=== PATIENT | female | born 1975 | race Caucasian/White ===

== ENCOUNTER 2017-09-29 13:30 | Emergency (ER) | payer MEDICARE, MEDICAID ==
[~2017-09-29] VITALS: Ht 162.6 cm; Wt 45.0 kg
[2017-09-29] MEDS ORDERED: SODIUM CHLORIDE 0.9% 1,000 ML IV ONE (14:20)
[2017-09-29] MEDS ORDERED: LEVETIRACETAM 500MG PREMIX 100 ML IV ONE (14:30)
[2017-09-29 14:49] LABS: CHLORIDE 105 mEq/L (98-107)
[2017-09-29 14:55] LABS: ETHANOL BLOOD < 10 mg/dL
[2017-09-29 14:57] LABS: CARBAMAZEPINE 4.1 ug/mL (4-12); EOSINOPHILS % 1.4 % (0.0-5.0); HEMOGLOBIN. 13.6 g/dL (12.0-16.0); LYMPHOCYTES % 18.7 % (20.0-50.0); MEAN CORPUSCULAR HEMOGLOBIN 32.2 pg (28.0-32.0); MEAN CORPUSCULAR VOLUME 87.5 fL (81.0-99.0); MONOCYTES % 8.8 % (2.0-8.0); NEUTROPHILS % 70.1 % (40.0-76.0); PLATELET 518 x1000/uL (130-400); RED BLOOD CELL COUNT 4.23 mill/uL (4.2-5.4); RED CELL DISTRIBUTION WIDTH 13.8 % (11.6-14.6)
[2017-09-29 14:58] LABS: PHENOBARBITAL < 2.1 ug/mL (15.0-40.0)
[2017-09-29 14:59] LABS: CLARITY URINE CLOUDY (CLEAR); COLOR URINE YELLOW (YELLOW); KETONES URINE NEGATIVE (NEGATIVE); LEUKOCYTE ESTERASE URINE 2+ (NEGATIVE); NITRITE URINE POSITIVE (NEGATIVE); OCCULT BLOOD URINE TRACE (NEGATIVE); PH URINE 6.5 (4.5-8.0); PROTEIN URINE 2+ (NEGATIVE); SPECIFIC GRAVITY URINE 1.019 (1.005-1.030)
[2017-09-29 15:02] LABS: VALPROIC ACID < 3.0 ug/mL (50-100)
[2017-09-29 15:41] LABS: *BENZODIAZEPINES SCREEN URINE NEGATIVE (NEGATIVE); *COCAINE SCREEN URINE NEGATIVE (NEGATIVE); METHADONE URINE SCREEN NEGATIVE (NEGATIVE); OPIATES URINE SCREEN NEGATIVE (NEGATIVE)
[2017-09-29 15:42] LABS: *AMPHETAMINES SCREEN URINE NEGATIVE (NEGATIVE); *BARBITURATES SCREEN URINE NEGATIVE (NEGATIVE); CANNABINOID URINE SCREEN NEGATIVE (NEGATIVE); PHENCYCLIDINE URINE SCREEN NEGATIVE (NEGATIVE)
[2017-09-29 16:29] VITALS: BP 148/67
== END 2017-09-29 16:32 | disposition home or self-care (01) ==
LOC: ER 13:48
DX: R56.9 Unspecified convulsions (principal); N39.0 Urinary tract infection, site not specified; E86.0 Dehydration; I10 Essential (primary) hypertension; Z86.73 Personal history of transient ischemic attack (TIA), and cerebral infarction without residual deficits; Z91.013 Allergy to seafood
CPT/HCPCS: 36415; 80053; 80156; 80165; 80184; 80185; 80305; 81003; 84443; 85025; 87086; 96365; 99285; G0482; J1953; J7030

== ENCOUNTER 2018-03-06 16:10 | Emergency (ER) | payer MEDICARE, MEDICAID ==
[~2018-03-06] VITALS: Ht 152.4 cm; Wt 60.0 kg
[2018-03-06] MEDS ORDERED: CARB200T6 PO (16:26)
[2018-03-06] MEDS ORDERED: FERR325T6 PO (16:26)
[2018-03-06] MEDS ORDERED: FAMO20TA8 PO (16:26)
[2018-03-06] MEDS ORDERED: CARV6.2548 PO (16:26)
[2018-03-06] MEDS ORDERED: RIVA20TA PO (16:26)
[2018-03-06] MEDS ORDERED: SODIUM CHLORIDE 0.9% 1,000 ML IV ONE (17:47)
[2018-03-06 18:17] LABS: BASOPHILS % 1.2 % (0.0-2.0); EOSINOPHILS % 0.5 % (0.0-5.0); HEMATOCRIT. 28.8 % (36.0-48.0); HEMOGLOBIN. 10.3 g/dL (12.0-16.0); LYMPHOCYTES % 23.3 % (20.0-50.0); MEAN CORPUSCULAR VOLUME 91.7 fL (81.0-99.0); MEAN PLATELET VOLUME 8.4 fl (7.4-10.4); PLATELET 451 x1000/uL (130-400); RED BLOOD CELL COUNT 3.14 mill/uL (4.2-5.4); RED CELL DISTRIBUTION WIDTH 15.1 % (11.6-14.6)
[2018-03-06 18:23] LABS: CHLORIDE 106 mEq/L (98-107)
[2018-03-06 18:25] LABS: HCG SCREEN NEGATIVE
[2018-03-06 18:37] LABS: CLARITY URINE CLOUDY (CLEAR); COLOR URINE DARK YELLOW (YELLOW); KETONES URINE TRACE (NEGATIVE); LEUKOCYTE ESTERASE URINE 1+ (NEGATIVE); NITRITE URINE NEGATIVE (NEGATIVE); OCCULT BLOOD URINE 3+ (NEGATIVE); PH URINE 5.5 (4.5-8.0); PROTEIN URINE 1+ (NEGATIVE); SPECIFIC GRAVITY URINE 1.019 (1.005-1.030)
[2018-03-06 21:30] VITALS: BP 136/75
== END 2018-03-06 21:30 | disposition home or self-care (01) ==
LOC: ER 16:10
DX: N93.8 Other specified abnormal uterine and vaginal bleeding (principal); N39.0 Urinary tract infection, site not specified; D64.9 Anemia, unspecified; I69.351 Hemiplegia and hemiparesis following cerebral infarction affecting right dominant side; G40.909 Epilepsy, unspecified, not intractable, without status epilepticus; I10 Essential (primary) hypertension; E87.6 Hypokalemia; Z91.013 Allergy to seafood; Z98.890 Other specified postprocedural states; Z99.3 Dependence on wheelchair
CPT/HCPCS: 36415; 76830; 76856; 80053; 81003; 81025; 84703; 85025; 93005; 96360; 99284; J7030

== ENCOUNTER 2018-09-01 10:44 | Inpatient (IN) | payer MEDICARE, MEDICAID ==
[~2018-09-01] VITALS: Ht 152.4 cm; Wt 44.9 kg
[~2018-09-01 10:44] MED LIST: CARB200T6 PO; CARV6.2548 PO; FAMO20TA8 PO; FERR325T6 PO; RIVA20TA PO
[2018-09-01] MEDS ORDERED: SODIUM CHLORIDE 0.9% 1,000 ML IV ONE (11:16)
[2018-09-01] MEDS ORDERED: ONDANSETRON HCL 4MG/2ML INJ IV STA (11:16)
[2018-09-01 11:30] LABS: EOSINOPHILS % 1.3 % (0.0-5.0); HEMATOCRIT. 41.1 % (36.0-48.0); HEMOGLOBIN. 14.4 g/dL (12.0-16.0); LYMPHOCYTES % 37.2 % (20.0-50.0); MEAN CORPUSCULAR HEMOGLOBIN 31.2 pg (28.0-32.0); MEAN CORPUSCULAR VOLUME 89.3 fL (81.0-99.0); MEAN PLATELET VOLUME 7.9 fl (7.4-10.4); MONOCYTES % 8.3 % (2.0-8.0); NEUTROPHILS % 52.2 % (40.0-76.0); PLATELET 563 x1000/uL (130-400); RED BLOOD CELL COUNT 4.61 mill/uL (4.2-5.4)
[2018-09-01] MEDS ORDERED: LEVETIRACETAM 500MG PREMIX 100 ML IV ONE (11:30)
[2018-09-01 11:36] LABS: PROTHROMBIN TIME 10.4 sec (9.6-11.0)
[2018-09-01 11:37] LABS: CHLORIDE 108 mEq/L (98-107)
[2018-09-01 11:42] LABS: ETHANOL BLOOD < 10 mg/dL
[2018-09-01 11:46] LABS: CREATINE KINASE 34 IU/L (26-192)
[2018-09-01 11:49] LABS: PHENOBARBITAL < 2.1 ug/mL (15.0-40.0)
[2018-09-01 11:51] LABS: CARBAMAZEPINE 8.3 ug/mL (4-12)
[2018-09-01] MEDS ORDERED: LORAZEPAM 2MG/ML CPJ IV ONE (12:15)
[2018-09-01] MEDS ORDERED: CEFTRIAXONE 1 G PREMIX 50 ML IV ONE (12:15)
[2018-09-01] MEDS ORDERED: ONDANSETRON HCL 4MG/2ML INJ IV ONE (12:45)
[2018-09-01 13:05] LABS: *AMPHETAMINES SCREEN URINE NEGATIVE (NEGATIVE); *BARBITURATES SCREEN URINE NEGATIVE (NEGATIVE); *BENZODIAZEPINES SCREEN URINE NEGATIVE (NEGATIVE); *COCAINE SCREEN URINE NEGATIVE (NEGATIVE); METHADONE URINE SCREEN NEGATIVE (NEGATIVE)
[2018-09-01 13:06] LABS: CANNABINOID URINE SCREEN NEGATIVE (NEGATIVE); OPIATES URINE SCREEN NEGATIVE (NEGATIVE); PHENCYCLIDINE URINE SCREEN NEGATIVE (NEGATIVE)
[2018-09-01 13:35] LABS: CLARITY URINE CLOUDY (CLEAR); COLOR URINE YELLOW (YELLOW); KETONES URINE NEGATIVE (NEGATIVE); LEUKOCYTE ESTERASE URINE NEGATIVE (NEGATIVE); NITRITE URINE NEGATIVE (NEGATIVE); OCCULT BLOOD URINE 1+ (NEGATIVE); PROTEIN URINE 3+ (NEGATIVE); SPECIFIC GRAVITY URINE 1.016 (1.005-1.030); UROBILINOGEN URINE 0.2 E.U./dL (0.2-1.0)
[2018-09-01 16:00] VITALS: BP 172/86
[2018-09-01] MEDS ORDERED: CLONIDINE 0.3MG TABLET PO PRN (16:00)
[2018-09-01] MEDS ORDERED: HYDROCODONE/ACETAMINOPHEN 5/325MG TABLET PO PRN (16:00)
[2018-09-01] MEDS ORDERED: ACETAMINOPHEN 325MG TABLET PO PRN (16:00)
[2018-09-01] MEDS ORDERED: LORAZEPAM 2MG/ML CPJ IV PRN (16:00)
[2018-09-01] MEDS: POTASSIUM CHLORIDE 20MEQ TABLET SR PO NR ×2 (16:16→16:19)
[2018-09-01] MEDS: AMLODIPINE 10MG TABLET PO SCH (16:21)
[2018-09-01 16:39] VITALS: BP 176/86
[2018-09-01] MEDS: CARVEDILOL 6.25 MG TABLET PO SCH (18:07)
[2018-09-01] MEDS ORDERED: CARB200C4 MT (19:25)
[2018-09-01 20:00] VITALS: BP 167/97
[2018-09-02] VITALS: BP 122/60
[2018-09-02 04:00] VITALS: BP 106/65
[2018-09-02 06:09] LABS: BASOPHILS % 0.7 % (0.0-2.0); EOSINOPHILS % 0.6 % (0.0-5.0); HEMATOCRIT. 32.7 % (36.0-48.0); HEMOGLOBIN. 11.2 g/dL (12.0-16.0); LYMPHOCYTES % 19.6 % (20.0-50.0); MEAN CORPUSCULAR HEMOGLOBIN 31.1 pg (28.0-32.0); MEAN CORPUSCULAR VOLUME 90.6 fL (81.0-99.0); MONOCYTES % 8.8 % (2.0-8.0); NEUTROPHILS % 70.3 % (40.0-76.0); PLATELET 494 x1000/uL (130-400); RED BLOOD CELL COUNT 3.61 mill/uL (4.2-5.4); RED CELL DISTRIBUTION WIDTH 14.6 % (11.6-14.6)
[2018-09-02 07:32] LABS: CHLORIDE 110 mEq/L (98-107)
[2018-09-02 08:00] VITALS: BP 123/63
[2018-09-02] MEDS ORDERED: ONDANSETRON HCL 4MG/2ML INJ IV PRN (08:00)
[2018-09-02] MEDS ORDERED: DIPHENHYDRAMINE 50MG/ML VIAL IV PRN (08:00)
[2018-09-02] MEDS ORDERED: IPRATROPIUM/ALBUTEROL 0.5-3(2.5)MG/3ML NEB INH PRN (08:00)
[2018-09-02] MEDS ORDERED: MAGNESIUM/ALUMINUM HYDROXIDE/SIMETHICONE 30ML UDC PO PRN (08:00)
[2018-09-02] MEDS ORDERED: NA PHOS,M-B/NA PHOS,DI-BA ENEMA 118ML PR PRN (08:00)
[2018-09-02] MEDS ORDERED: DOCUSATE SODIUM 100MG CAPSULE PO PRN (08:00)
[2018-09-02] MEDS ORDERED: HYDRALAZINE 20MG/ML VIAL IV PRN (08:00)
[2018-09-02] MEDS ORDERED: ACETAMINOPHEN 325MG TABLET PO PRN (08:00)
[2018-09-02] MEDS ORDERED: GUAIFENESIN 200MG/10ML SUGAR FREE UDC PO PRN (08:00)
[2018-09-02] MEDS: CARVEDILOL 6.25 MG TABLET PO SCH ×2 (09:44→19:26)
[2018-09-02] MEDS: AMLODIPINE 10MG TABLET PO SCH (09:44)
[2018-09-02] MEDS: ENOXAPARIN 30MG/0.3ML SYR SUBCUT SCH (09:45)
[2018-09-02 12:00] VITALS: BP 136/73
[2018-09-02] MEDS: CEFTRIAXONE 1 G PREMIX 50 ML IV SCH (13:56)
[2018-09-02] MEDS: SODIUM CHLORIDE 0.45% 1,000 ML IV SCH (13:56)
[2018-09-02] MEDS: SODIUM CHLORIDE 0.9% INJ 3ML FLUSH IVF SCH ×2 (16:38→20:54)
[2018-09-02 16:42] VITALS: BP 138/69
[2018-09-02 20:00] VITALS: BP 117/57
[2018-09-02] MEDS: LEVETIRACETAM 500MG TABLET PO SCH (20:54)
[2018-09-03] VITALS: BP 151/81
[2018-09-03 04:00] VITALS: BP 136/64
[2018-09-03] MEDS: SODIUM CHLORIDE 0.9% INJ 3ML FLUSH IVF SCH ×3 (06:06→22:16)
[2018-09-03] MEDS: SODIUM CHLORIDE 0.45% 1,000 ML IV SCH (06:06)
[2018-09-03 06:23] LABS: CHLORIDE 107 mEq/L (98-107)
[2018-09-03 06:26] LABS: BASOPHILS % 1.2 % (0.0-2.0); EOSINOPHILS % 1.4 % (0.0-5.0); HEMATOCRIT. 32.2 % (36.0-48.0); HEMOGLOBIN. 11.5 g/dL (12.0-16.0); LYMPHOCYTES % 26.9 % (20.0-50.0); MEAN CORPUSCULAR HEMOGLOBIN 31.7 pg (28.0-32.0); MEAN CORPUSCULAR VOLUME 88.8 fL (81.0-99.0); MONOCYTES % 9.4 % (2.0-8.0); NEUTROPHILS % 61.1 % (40.0-76.0); PLATELET 465 x1000/uL (130-400); RED BLOOD CELL COUNT 3.63 mill/uL (4.2-5.4); RED CELL DISTRIBUTION WIDTH 14.6 % (11.6-14.6)
[2018-09-03 08:00] VITALS: BP 144/59
[2018-09-03] MEDS ORDERED: POTASSIUM CHLORIDE 20MEQ TABLET SR PO SCH (08:45)
[2018-09-03] MEDS: LEVETIRACETAM 500MG TABLET PO SCH ×2 (09:42→22:16)
[2018-09-03] MEDS: ENOXAPARIN 30MG/0.3ML SYR SUBCUT SCH (09:43)
[2018-09-03] MEDS: AMLODIPINE 10MG TABLET PO SCH (09:43)
[2018-09-03] MEDS: CARVEDILOL 6.25 MG TABLET PO SCH ×2 (09:44→18:58)
[2018-09-03 12:00] VITALS: BP 117/79
[2018-09-03] MEDS: CEFTRIAXONE 1 G PREMIX 50 ML IV SCH (15:02)
[2018-09-03 16:00] VITALS: BP 137/59
[2018-09-03 20:00] VITALS: BP 130/79
[2018-09-04] VITALS: BP 129/64
[2018-09-04] MEDS: SODIUM CHLORIDE 0.45% 1,000 ML IV SCH (02:44)
[2018-09-04 04:00] VITALS: BP 124/68
[2018-09-04] MEDS: SODIUM CHLORIDE 0.9% INJ 3ML FLUSH IVF SCH ×2 (05:25→14:27)
[2018-09-04 08:00] VITALS: BP 125/66
[2018-09-04] MEDS: LEVETIRACETAM 500MG TABLET PO SCH (09:38)
[2018-09-04] MEDS: AMLODIPINE 10MG TABLET PO SCH (09:38)
[2018-09-04] MEDS: CARVEDILOL 6.25 MG TABLET PO SCH (09:38)
[2018-09-04] MEDS: ENOXAPARIN 30MG/0.3ML SYR SUBCUT SCH (09:39)
[2018-09-04 12:00] VITALS: BP 122/60
[2018-09-04] MEDS: CEFTRIAXONE 1 G PREMIX 50 ML IV SCH (14:27)
[2018-09-04 14:42] VITALS: BP 122/60
[2018-09-04] MEDS ORDERED: KEPP500 MT (14:42)
== END 2018-09-04 15:17 | disposition home or self-care (01) | DRG 100 ==
LOC: ER 10:44 → 7WST 12:45 → EDBEDREQ 12:54 → ENRESERV 13:25 → 7WST 16:25
PROVIDERS: ADMIT Internal Medicine; ATTEND Internal Medicine
PROC: 4A00X4Z Measurement of Central Nervous Electrical Activity, External Approach (ICD-10-PCS; principal; 2018-09-04)
DX: G40.89 Other seizures (principal); G93.41 Metabolic encephalopathy; I69.951 Hemiplegia and hemiparesis following unspecified cerebrovascular disease affecting right dominant side; I10 Essential (primary) hypertension; S01.512A Laceration without foreign body of oral cavity, initial encounter; E87.6 Hypokalemia; S01.511A Laceration without foreign body of lip, initial encounter; X58.XXXA Exposure to other specified factors, initial encounter; E86.0 Dehydration; Z79.01 Long term (current) use of anticoagulants; Z79.899 Other long term (current) drug therapy; Y93.89 Activity, other specified; Y92.89 Other specified places as the place of occurrence of the external cause; Y99.8 Other external cause status; Z91.013 Allergy to seafood
CPT/HCPCS: 36415; 70551; 71045; 80048; 80061; 80156; 80165; 80184; 80185; 80305; 80320; 82140; 82550; 83605; 83880; 84443; 84484; 87077; 87186; 93005; 96365; 96375; 97163; 97167; 97530; 99285; A6261; C1893; J0696; J1650; J1953; J2060; J2405; J7030; A4315; G0480